=== PATIENT | male | born 1985 | race Caucasian/White ===

== ENCOUNTER 2016-10-31 15:38 | Emergency (ER) | payer MEDICARE | END 2016-10-31 17:23 | disposition home or self-care (01) | LOC: ER 15:38 | DX: J10.1 Influenza due to other identified influenza virus with other respiratory manifestations (principal); R11.10 Vomiting, unspecified; H61.22 Impacted cerumen, left ear; I48.91 Unspecified atrial fibrillation; R07.81 Pleurodynia; R53.1 Weakness | CPT/HCPCS: 87400; 99283 ==

== ENCOUNTER 2016-11-01 19:28 | Emergency (ER) | payer MEDICARE | END 2016-11-01 22:19 | disposition home or self-care (01) | LOC: ER 19:28 | DX: J10.1 Influenza due to other identified influenza virus with other respiratory manifestations (principal); R51 Headache; R63.0 Anorexia; R53.1 Weakness; I51.9 Heart disease, unspecified; Z79.899 Other long term (current) drug therapy | CPT/HCPCS: 93005; 96361; 96374; 96375; 99284; 99284-25 ==